=== PATIENT | female | born 1950 | race Caucasian/White ===

== ENCOUNTER → 2017-08-01 | Outpatient (CLI) | payer OTHER ==
[~2017-08-01] MED LIST: ASPI-232 PO; CHOL100010 PO; LISI-725 PO; OASIS OPB; POLY1DRO2 OPB; ZIOPTAN OPB
== END | disposition home or self-care (01) ==
LOC: C.PATHSPEC 10:47
PROVIDERS: ATTEND Plastic Surgery
DX: L72.11 Pilar cyst (principal)

== ENCOUNTER 2022-04-22 02:13 | Inpatient (IN) ==
[2022-04-22 03:07] LABS: Basophils # (auto) 0.04 K/uL (0-0.2); Basophils % (auto) 0.7 %; Hematocrit (blood only) 34.1 % (34.1-44.9); Hemoglobin 11.2 g/dl (12.0-16.0); Immature Granulocytes # (auto) 0.05 K/uL (0.00-0.02); Immature Granulocytes % (auto) 0.8 %; Lymphocytes # (auto) 1.51 K/uL (1.2-3.4); Lymphocytes % (auto) 25.3 %; Mean Corpuscular Hemoglobin 32.1 pg (25.0-34.0); Mean Corpuscular Hgb Conc 32.8 g/dL (32.0-36.0); Mean Corpuscular Volume 97.7 fL (80.0-100.0); Mean Platelet Volume 11.6 fL (9.4-12.3); Monocytes # (auto) 1.03 K/uL (0.24-0.82); Monocytes % (auto) 17.3 %; Neutrophils # (auto) 3.03 K/uL (1.4-6.5); Neutrophils % (auto) 50.9 %; Platelet Count 180 K/uL (130-400); RDW Coefficient of Variation 16.5 % (11.5-14.5); RDW Standard Deviation 59.3 fL (36.4-46.3); Red Blood Count 3.49 M/uL (3.93-5.22); White Blood Count 5.96 K/ul (4.8-10.8)
[2022-04-22 03:20] LABS: Albumin Level 3.9 gm/dl (3.4-5.0); BUN Creatinine Ratio 9.3 (10-20); Bilirubin Direct 0.1 mg/dl (0-0.2); Bilirubin,Total 0.6 mg/dl (0.2-1.0); Calcium 9.2 mg/dl (8.5-10.1); Creatinine Clr Calc Pharmacy 46.2 ml/min; Est GFR (African American) 59.8 ml/min; Est GFR (Non-African American) 51.6 ml/min; Magnesium 2.3 mg/dl (1.7-2.4); Potassium 3.4 mmol/L (3.5-5.1); Total Protein 6.4 gm/dl (6.0-8.3)
[2022-04-22 03:22] LABS: Troponin I High Sensitivity 4.4 pg/ml (0-14)
--- NOTE | 2022-04-22 03:28 | Emergency Department Note ---
Impression & Plan Syncope, Bradycardia Admit to the [facility] ED Provider Note NAME: MONO MENDEZ AGE: 72 SEX: F ARRIVES VIA: Ambulance INFORMANT: Patient ED PROVIDER(S): Olivia Graham DO CHIEF COMPLAINT: Syncope PLAN: Disposition: Admit to the [facility] Condition: Stable MEDICAL DECISION MAKING: This is a 72-year-old female patient presents to the emergency department after syncopal event. The patient was preparing for bed when she was sitting on a stool in her bathroom and had a syncopal event on the floor of the bathroom. She did not injure herself during this event. She has been having some diarrhea may be dehydrated. Laboratory studies reveal hemoglobin of 11.2 which is baseline for her. Electrolytes are normal, BUN/creatinine are normal. Patient was noted to be fairly bradycardic with heart rates as low as 40. The patient was evaluated just yesterday by [facility] cardiology and a Zio patch was placed. Patient was instructed to go to the emergency department or call 911 if she had any further episodes of near syncope or syncope. External recor ds from [facility] were reviewed. After review of the information above and other including data, I feel the patient will require inpatient care and evaluation by cardiology. I discussed the case with the [facility] and they will evaluate for inpatient care. Triage Nursing notes reviewed and agree with them. Vital Signs: reviewed and remarkable for bradycardia Differential diagnosis: Vasovagal syncope, cardiac dysrhythmia, bradycardia, dehydration ER treatment provided: IV normal saline hydration Twelve-lead EKG Cardiac monitoring Diagnostics interpreted by me: ECG: Sinus bradycardia at a rate of 47 with a first-degree AV block. There is no ectopy or signs of ischemia. Cardiac Monitoring: Sinus bradycardia at a rate of 47 Laboratory studies: See below HPI: 72/F arrives for evaluation of syncope. The patient was in her bathroom preparing to do her routine on her teeth and eyes when she was sitting on a stool and passed out onto the floor. She did not injure herself in any way during this episode. But she does not remember what happened. Patient does describe having some diarrhea. She has had significantly fatigued today and did sleep for a good part of the day. PAST MEDICAL HISTORY:Myeloma, Sjogren's syndrome, polymyalgia rheumatica PAST SURGICAL HISTORY:See Below FAMILY HISTORY:See Below SOCIAL HISTORY: Patient denies any alcohol or tobacco use HOME MEDICATIONS:See list ALLERGIES:See list VITALS:See Below PHYSICAL EXAMINATION: HEENT: Head - normocephalic and atraumatic. Pupils are equal, round, and react katina to light. Extraocular eye muscles are intact, and sclera are anicteric. Nose - moist nasal mucosa without discharge. Mouth - moist buccal mucosa. Oropharynx is nonerythematous and there is no tonsillar exudate or edema noted. Neck: Supple; no JVD, nuchal rigidity, cervical lymphadenopathy, or auscultated bruits. Heart: Bradycardic rate and regularRhythm. There is a normal S1 and S2 with no murmurs, clicks, or gallops appreciated. Lungs: Clear to auscultation bilaterally with no wheezes, rales, or rhonchi. Abdomen: Soft, completely nontender, nondistended, with good bowel sounds. Th ere are no palpable pulsatile masses or hepatosplenomegaly. There is no guarding, rigidity, or rebound noted. Extremities: No evidence of cyanosis, clubbing, or edema. There are easily palpable peripheral pulses. Skin: warm and dry with good turgor and no rashes. ED COURSE: Times/Reassessments: 250: The patient was evaluated in room B 10. A complete history and physical was performed. An order was placed for continuous cardiac monitoring. The patient was in a sinus bradycardia at a rate of 47. Laboratory studies drawn as above. Reviewed the results of the labs with the patient and her daughter. The patient remains significantly bradycardic at times with rates as low as 40. [facility]. Olivia Graham DO Past Med/Surg History Medical History Parathyroid adenoma Surgical History H/O colonoscopy "01/16- diverticulosis" History of bladder surgery History of bone marrow biopsy History of endoscopy History of knee surgery bilateral S/P appendectomy S/P cataract surgery S/P D&C (status post dilation and curettage) S/P KATIE-BSO S/P tonsillectomy and adenoidectomy Status post glaucoma surgery Family History Father Diabetes Hypertension Mother Diabetes Hypertension Stroke Environmental allergies Aunt Cancer Grandfather (Paternal) Cardiac disorder Stroke Brother Hypertension Prostate cancer Environmental allergies Asthma Sister Hypertension Environmental allergies Grandfather (Maternal) Stroke Daughter Environmental allergies Asthma Family/Other Environmental allergies nieces and nephews Other No family history of adverse response to anesthesia No family history of bleeding disorder Social History Smoking Status: Never smoker Hx Alcohol Use: No Hx Substance Use: No Preferred Language: Tajik Communication Ability: Effective [employer] Required: No Beliefs That Will Affect Care: None marital status: / Current Living Situation: Alone current occupational status: retired current occupation: Retired [employer] Other Information That Helps Us Care for You: No Feels Safe at Home: Yes Safety Concerns: Feels Safe At This Time Assistive Devices: Cane and Glasses Allergies Allergies Allergy/AdvReac Type Severity Reaction Status Date / Time clarithromycin Allergy Intermediate hives Verified 04/22/22 03:15 azithromycin Allergy Unknown swelling Verified 04/22/22 03:15 hydrocortisone Allergy Unknown rash Verified 04/22/22 03:15 meperidine Allergy Unknown rash Verified 04/22/22 03:15 neomycin Allergy Unknown rash Verified 04/22/22 03:15 polymyxin B Allergy Unknown rash Verified 04/22/22 03:15 propylene glycol Allergy Unknown rash Verified 04/22/22 03:15 lisinopril AdvReac Cough Unverified 04/22/22 03:15 Home Meds Home Medications Medication Instructions Recorded Confirmed acyclovir 400 mg tablet 400 mg PO AMHS 04/22/22 04/22/22 aspirin 81 mg tablet,delayed 81 mg PO DAILY 04/22/22 04/22/22 release cholecalciferol (vitamin D3) 50 50 mcg PO DAILY 04/22/22 04/22/22 mcg (2,000 unit) tablet dexamethasone 4 mg tablet 4 mg PO UD 04/22/22 04/22/22 dextran 70-hypromellose (PF) 0.1 1 drp OPB HS PRN Dry Eye(S) 04/22/22 04/22/22 %-0.3 % eye drops in a dropperette (Artificial Tears (PF)) fluconazole 150 mg tablet 150 mg PO WK 04/22/22 04/22/22 furosemide 40 mg tablet 40 mg PO QAM 04/22/22 04/22/22 gabapentin 300 mg capsule 300 mg PO UD 04/22/22 04/22/22 lenalidomide 25 mg capsule 25 mg PO UD 04/22/22 04/22/22 (Revlimid) losartan 50 mg tablet 50 mg PO QAM 04/22/22 04/22/22 magnesium oxide 400 mg PO DAILY 04/22/22 04/22/22 netarsudil 0.02 % eye drops 1 drp OPB HS 04/22/22 04/22/22 (Rhopressa) nystatin 100,000 unit/mL oral 10 ml buccal QID 04/22/22 04/22/22 suspension potassium chloride 10 mEq 20 meq PO AMPM 04/22/22 04/22/22 tablet,extended release(part/cryst) (Klor-Con M) tafluprost (PF) 0.0015 % eye drops 1 drp OPB HS 04/22/22 04/22/22 in a dropperette vitamin B complex 1 tab PO QAM 04/22/22 04/22/22 Results & Data (ED) Vital Signs Vital Signs - 24 hr 04/22/22 02:24 04/22/22 02:24 04/22/22 02:59 Temperature 36.8 C Temperature Source Oral Pulse Rate 47 L 47 L Pulse Rate from SpO2 Sensor 47 L Respiratory Rate 18 15 Respiratory Effort / Characteristics Non-Labored Respiratory Depth Normal Blood Pressure 121/100 152/63 H Blood Pressure Mean 107 92 Pulse Oximetry 98 96 Oxygen Delivery Method Room Air Room Air Sepsis Recent Fever Within 48 Hours No Sepsis New/Unexplained Change in Mental Status No Sepsis Action Taken by Nursing No Action Required 04/22/22 03:30 04/22/22 04:00 04/22/22 04:37 Temperature Temperature Source Pulse Rate 45 L 45 L 50 L Pulse Rate from SpO2 Sensor 45 L 45 L 54 L Respiratory Rate 19 18 21 Respiratory Effort / Characteristics Respiratory Depth Blood Pressure 158/90 H 150/79 H 161/77 H Blood Pressure Mean 112 102 105 Pulse Oximetry 97 100 92 Oxygen Delivery Method Sepsis Recent Fever Within 48 Hours Sepsis New/Unexplained Change in Mental Status Sepsis Action Taken by Nursing 04/22/22 05:00 04/22/22 05:30 Temperature Temperature Source Pulse Rate 46 L 49 L Pulse Rate from SpO2 Sensor 46 L 51 L Respiratory Rate 14 17 Respiratory Effort / Characteristics Respiratory Depth Blood Pressure 136/66 142/65 H Blood Pressure Mean 89 90 Pulse Oximetry 96 92 Oxygen Delivery Method Sepsis Recent Fever Within 48 Hours Sepsis New/Unexplained Change in Mental Status Sepsis Action Taken by Nursing Laboratory Data 04/22/22 02:30 04/22/22 02:30 Lab Results 04/22/22 04/22/22 04/22/22 Range/Units 02: 02:30 02:30 WBC 5.96 (4.8-10.8) K/ul RBC 3.49 L (3.93-5.22) M/uL Hgb 11.2 L (12.0-16.0) g/dl Hct 34.1 (34.1-44.9) % MCV 97.7 (80.0-100.0) fL MCH 32.1 (25.0-34.0) pg MCHC 32.8 (32.0-36.0) g/dL RDW Std Deviation 59.3 H (36.4-46.3) fL RDW Coeff of Esme 16.5 H (11.5-14.5) % Plt Count 180 (130-400) K/uL MPV 11.6 (9.4-12.3) fL Immature Gran % (Auto) 0.8 % Neut % (Auto) 50.9 % Lymph % (Auto) 25.3 % [place] % (Auto) 17.3 % Eos % (Auto) 5.0 % Baso % (Auto) 0.7 % Neut # (Auto) 3.03 (1.4-6.5) K/uL Lymph # (Auto) 1.51 (1.2-3.4) K/uL [place] # (Auto) 1.03 H (0.24-0.82) K/uL Eos # (Auto) 0.30 (0-0.50) K/uL Baso # (Auto) 0.04 (0-0.2) K/uL Immature Gran # (Auto) 0.05 H (0.00-0.02) K/uL Sodium 138 (136-145) mmol/L Potassium 3.4 L (3.5-5.1) mmol/L Chloride 103 (98-107) mmol/L Carbon Dioxide 25 (21-32) mmol/L Anion Gap 10 (3-11) BUN 10 (6-23) mg/dl Creatinine 1.08 (0.6-1.2) mg/dl Est Cr Clr Drug Dosing 46.2 ml/min Est GFR ( Amer) 59.8 ml/min Est GFR (Non-Af Amer) 51.6 ml/min BUN/Creatinine Ratio 9.3 L (10-20) Glucose 99 (70-99(Fasting)) mg/dl POC Glucose 89 (70-99) mg/dl Calcium 9.2 (8.5-10.1) mg/dl Magnesium 2.3 (1.7-2.4) mg/dl Total Bilirubin 0.6 (0.2-1.0) mg/dl Direct Bilirubin 0.1 (0-0.2) mg/dl AST 15 (13-39) U/L ALT 11 (7-52) U/L Alkaline Phosphatase 54 (34-104) U/L Troponin I High Sens 4.4 (0-14) pg/ml Total Protein 6.4 (6.0-8.3) gm/dl Albumin 3.9 (3.4-5.0) gm/dl TSH (0.300-4.500) uIu/ml SARS-CoV-2 (PCR) (Negative) Influenza Type A (PCR) (Neg) Influenza Type B (PCR) (Neg) RSV (RT-PCR) (Neg) 04/22/22 04/22/22 Range/Units 02:30 02:49 WBC (4.8-10.8) K/ul RBC (3.93-5.22) M/uL Hgb (12.0-16.0) g/dl Hct (34.1-44.9) % MCV (80.0-100.0) fL MCH (25.0-34.0) pg MCHC (32.0-36.0) g/dL RDW Std Deviation (36.4-46.3) fL RDW Coeff of Esme (11.5-14.5) % Plt Count (130-400) K/uL MPV (9.4-12.3) fL Immature Gran % (Auto) % Neut % (Auto) % Lymph % (Auto) % [place] % (Auto) % Eos % (Auto) % Baso % (Auto) % Neut # (Auto) (1.4-6.5) K/uL Lymph # (Auto) (1.2-3.4) K/uL [place] # (Auto) (0.24-0.82) K/uL Eos # (Auto) (0-0.50) K/uL Baso # (Auto) (0-0.2) K/uL Immature Gran # (Auto) (0.00-0.02) K/uL Sodium (136-145) mmol/L Potassium (3.5-5.1) mmol/L Chloride (98-107) mmol/L Carbon Dioxide (21-32) mmol/L Anion Gap (3-11) BUN (6-23) mg/dl Creatinine (0.6-1.2) mg/dl Est Cr Clr Drug Dosing ml/min Est GFR ( Amer) ml/min Est GFR (Non-Af Amer) ml/min BUN/Creatinine Ratio (10-20) Glucose (70-99(Fasting)) mg/dl POC Glucose (70-99) mg/dl Calcium (8.5-10.1) mg/dl Magnesium (1.7-2.4) mg/dl Total Bilirubin (0.2-1.0) mg/dl Direct Bilirubin (0-0.2) mg/dl AST (13-39) U/L ALT (7-52) U/L Alkaline Phosphatase (34-104) U/L Troponin I High Sens (0-14) pg/ml Total Protein (6.0-8.3) gm/dl Albumin (3.4-5.0) gm/dl TSH 0.510 (0.300-4.500) uIu/ml SARS-CoV-2 (PCR) NEGATIVE (Negative) Influenza Type A (PCR) Negative (Neg) Influenza Type B (PCR) Negative (Neg) RSV (RT-PCR) Negative (Neg) Administered Medications Acyclovir (Acyclovir 400 Mg Tab) 400 mg PO AMHS [facility] Stop: 05/22/22 08:59 Last Admin: 04/22/22 20:20 Dose: 400 mg Documented By: Admin: 04/22/22 10:16 Dose: 400 mg Documented By: RONALDW Aspirin (Aspirin 81 Mg Ectab) 81 mg PO DAILY [facility] Stop: 05/22/22 08:59 Last Admin: 04/22/22 10:16 Dose: 81 mg Documented By: JAIME Furosemide (Furosemide 40 Mg Tab) 40 mg PO QAM SARATH Stop: 05/22/22 08:59 Last Admin: 04/22/22 10:15 Dose: 40 mg Documented By: JAIME Losartan Potassium (Losartan Potassium 50 Mg Tab) 50 mg PO QAM [facility]ATH Stop: 05/22/22 08:59 Last Admin: 04/22/22 10:16 Dose: 50 mg Documented By: JAIME Magnesium Oxide (Magnesium Oxide 400 Mg Tab) 400 mg PO QDD SARATH Stop: 05/22/22 16:29 Last Admin: 04/22/22 16:56 Dose: 400 mg Documented By: NATALI Nystatin (Nystatin Susp 500,000 U/5 Ml Udc) 10 ml BUCCAL QID SARATH Stop: 05/02/22 08:59 Last Admin: 04/22/22 20:09 Dose: Not Given Documented By: Admin: 04/22/22 16:43 Dose: Not Given Documented By: Admin: 04/22/22 13:18 Dose: Not Given Documented By: Admin: 04/22/22 10:14 Dose: 10 ml Documented By: JAIME Potassium Chloride (Potassium Chloride Crtab 20 Meq Tabcr) 20 meq PO BID SARATH Stop: 05/22/22 08:59 Last Admin: 04/22/22 20:20 Dose: 20 meq Documented By: Admin: 04/22/22 10:15 Dose: 20 meq Documented By: JAIME Vitamin B Complex (Vitamin B Complex Tab) 1 tab PO QAM SARATH Stop: 05/22/22 08:59 Last Admin: 04/22/22 10:15 Dose: 1 tab Documented By: JAIME Vitamin D (Cholecalciferol 1,000 Units 25 Mcg Tab) 2,000 units PO DAILY [facility]ATH Stop: 05/22/22 08:59 Last Admin: 04/22/22 10:16 Dose: 2,000 units Documented By: JAIME Discontinued Medications Sodium Chloride (Nss 1000ml) 1,000 mls @ 75 mls/hr IV .[id number] SARATH Stop: 05/22/22 07:45 Last Infusion: 04/22/22 15:55 Dose: 0 mls/hr Documented By: Admin: 04/22/22 08:47 Dose: 75 mls/hr Documented By: STEPHANIE Loperamide HCl (Loperamide Hcl 2 Mg Cap) 2 mg PO NOW STA Stop: 04/22/22 10:25 Last Admin: 04/22/22 15:50 Dose: Not Given Documented By: NATALI Miscellaneous (Rhopressa-Order Awaiting Action) 1 each N/A QS SARATH Stop: 05/22/22 15:59 Last Admin: 04/22/22 16:12 Dose: Not Given Documented By: NATALI Hebertcellaneous (Tafluprost- Order Awaiting Action) 1 each N/A QS SARATH Stop: 05/22/22 15:59 Last Admin: 04/22/22 16:12 Dose: Not Given Documented By: NATALI Potassium Chloride (Potassium Chloride 20 Meq/15 Ml Udc) 40 meq PO NOW STA Stop: 04/22/22 06:28 Last Admin: 04/22/22 06:42 Dose: 40 meq Documented By: EVAN Discharge Plan Visit Data Chief Complaint: Syncope Stated Complaint: SYNCOPE ED Provider: Olivia Graham Discharge Problem: Syncope, Bradycardia Patient Disposition: Admitted As Inpatient Discharge Instructions Interventions: ED Discharge Assessment Last Done: 04/22/22 07:47 : Syncope Qualifiers: Syncope type: unspecified Qualified Code(s): R55 - Syncope and collapse
[2022-04-22 04:16] LABS: Influenza A virus by PCR Negative (Neg); Influenza B virus by PCR Negative (Neg); RSV by PCR Negative (Neg); SARS CoV2 RNA(COVID-19) Ceph NEGATIVE (Negative)
[2022-04-22 04:59] LABS: Appearance Urine Clear (Clear); Bacteria Urine Automated Negative (Negative); Bilirubin Urine Negative (Negative); Blood Urine 3+ (Negative); Color Urine Yellow; Epithelial Cell Urine Auto 20-30 /lpf (0-5); Glucose Urine UA Negative (Negative); Ketones Urine Trace (Negative); Leukocyte Esterase Urine Negative (Negative); Nitrite Urine Negative (Negative); Protein Urine Trace (Negative); Specific Gravity Urine 1.017 (1.000-1.030); Urobilinogen Urine Negative (Negative)
[2022-04-22] MEDS ORDERED: POTASSIUM CHLORIDE 20 MEQ/15 ML UDC PO STA (06:27)
[2022-04-22] MEDS ORDERED: SODIUM CHLORIDE 0.9% 1000ML 1,000 ML IV SCH (07:46)
[2022-04-22] MEDS ORDERED: ACETAMINOPHEN 325 MG TAB PO PRN (07:46)
[2022-04-22] MEDS ORDERED: NITROGLYCERIN SL 0.4 MG/TAB TAB SL PRN (07:46)
[2022-04-22] MEDS ORDERED: ARTIFICIAL TEARS OP PRN (08:08)
--- NOTE | 2022-04-22 08:17 | XRay Report ---
RIGHT WRIST 5 VIEWS HISTORY: fall and pain COMPARISON: None. FINDINGS: There is no fracture or dislocation. Mild soft tissue swelling. No radiopaque foreign adal s. IMPRESSION: No fractures. ACT 112: Negative or not required by law. Electronically signed by: Abbe Rodarte M.D. 04/22/2022 8:16 AM
--- NOTE | 2022-04-22 09:01 | History and Physical Report ---
DATE OF ADMISSION: 04/22/2022. CHIEF COMPLAINT: Syncope. HISTORY OF PRESENT ILLNESS: History of paroxysmal atrial fibrillation in setting of electrolyte disturbance, and a CHADS2-VASc score of 2 at the time and not on anticoagulation. No recurrence. As per the Cardiology notes there is history of atrial and ventricular ectopy, resting sinus bradycardia, hypertension, aortic calcification, light chain myeloma currently under chemo, history of Sjogren's disease, history of parathyroid adenoma, presents with syncope. Patient is having this dizziness, lightheadedness going on for some time and resting bradycardia, evaluated by Cardiology last Saturday and placed on Zio patch. Last night around 11:30 p.m., she was sitting on the stool in the bathroom and cleaning up herself, she was feeling lightheaded, but the next thing she noticed she was sitting on the floor. She does not remember how it happened. She is also having diarrhea like 4-5 times recently attributing to chemo and she could not get up to go to bathroom and she soiled herself and she is cleaning and was feeling lightheaded and that is the reason she came to the ER. In the ER she was bradycardic with heart rate in the 40s. Currently, resting comfortably, hemodynamically stable. Denies any headache. No blurred visions. She has no earache, no runny nose, no sore throat, no cough, no difficulty swallowing. No chest pain, no shortness of breath, no abdominal pain. Normal bowel and bladder movements.On Acyclovir for chronic suppressive therapy. ON Diflucan for fungal infection under breast and nystatin swish and swallow for thrush. ALLERGIES: CLARITHROMYCIN, ERYTHROMYCIN, HYDROCORTISONE, MEPERIDINE, NEOMYCIN, POLYMYXIN B., PROPYLENE GLYCOL, LISINOPRIL. PAST MEDICAL HISTORY: As mentioned above. PAST SURGICAL HISTORY: Bone marrow biopsy, chemotherapy, colonoscopy, dental surgery, dilatation and curettage, EGD, incision of eye for glaucoma, laparoscopic total abdominal hysterectomy with bilateral salpingo-oophorectomy fibroids with anterior repair, laser trabeculoplasty, punch biopsy of skin, appendectomy, tonsillectomy, adenoidectomy, left knee meniscus repair. MEDICATIONS: The patient is on acyclovir 400 mg p.o. b.i.d., aspirin 81 mg p.o. daily, vitamin D 50 mcg p.o. daily, dexamethasone as directed, Artificial Tears 1 drop ophthalmic at bedtime p.r.n., fluconazole 150 mg p.o. b.i.d. for up to four weeks, Lasix 40 mg p.o. daily, Revlimid 25 mg for 14 days and one week off, losartan 50 mg p.o. daily, magnesium oxide 400 mg p.o. daily, Rhopressa one drop ophthalmic at bedtime,nystatin 10 ml q.i.d., potassium chloride 20 mEq p.o. b.i.d., tafluprost 1 drop at bedtime, vitamin B complex 1 tablet p.o. a.m. FAMILY HISTORY: Significant for brother has allergies; mother has allergies, arthritis, diabetes, hypertension, obesity; father has diabetes, eye problems, hypertension. Sister has hypertension. SOCIAL HISTORY: . No smoking, no alcohol, no drug use. REVIEW OF SYSTEMS: As per HPI. Rest of the review of systems is negative. PHYSICAL EXAMINATION: GENERAL: The patient is moderately built, not in acute distress. VITAL SIGNS: Temperature 36.8, pulse 49, respiratory rate 17, blood pressure 142/65, oxygen 92% on room air. HEENT: Pupils equal, round and reactive to light. Oral mucosa moist. NECK: No JVD. No neck masses. CARDIOVASCULAR: S1 and S2 heard. Regular rate and rhythm. No murmur, no gallop. RESPIRATORY SYSTEM: Normal AP diameter. No accessory muscle use. No wheezing, no crackles. ABDOMEN: Soft, bowel sounds present, nontender, no distention. CENTRAL NERVOUS SYSTEM: Cranial nerves II-XII grossly intact, nonfocal. EXTREMITIES: No edema, no erythema. LABORATORY DATA: WBC 5.6, hemoglobin 11.2, hematocrit 34.1, platelets 180. Sodium 138, potassium 3.4, chloride 103, bicarbonate 25, BUN 10, creatinine 1.08, serum glucose 99, calcium 9.2, magnesium 2.8, total bilirubin 0.1, direct bilirubin 0.1, AST 15, ALT 11, alkaline phosphatase 54. Troponin I high sensitivity 4.4. TSH 0.5. Urinalysis negative. SARS-CoV-2 PCR negative. Influenza A and B PCR negative. RSV PCR negative. EKG: Shows sinus bradycardia with first-degree AV block at a rate of 47, left axis deviation, incomplete right bundle-branch block. ASSESSMENT AND PLAN: This 72-year-old female presents with syncope. 1. Syncope, possible symptomatic bradycardia. The patient seems has longstanding sinus bradycardia. Last Ihsan she saw Cardiology and placed on Zio patch. We will monitor in tele floor. Serial cardiac enzymes, echocardiogram. Check Orthostatics.Gentle fluids. We will keep her n.p.o. and consult Cardiology in the a.m. for further recommendations. 2. Light chain multiple myeloma, on chemo. Follow up with hematology/oncology. Further plan as per hematology/oncology. 3. Hypokalemia, potassium is 3.4, we will replace. 4. Hypertension, on losartan and Lasix. We will monitor the blood pressure. 5. History of parathyroid adenoma. Follow with hematology/oncology. 6. Deep venous thrombosis prophylaxis: Sequential compression devices for now. DISPOSITION: Admit to tele floor. Level 1 full code. Expect to discharge home and follow with family doctor. Job ID: [id number] [facility]
[2022-04-22] MEDS: NYSTATIN SUSP 500,000 U/5 ML UDC BUCCAL SCH ×4 (10:14→20:09)
[2022-04-22] MEDS: VITAMIN B COMPLEX TAB PO SCH (10:15)
[2022-04-22] MEDS: POTASSIUM CHLORIDE CRTAB 20 MEQ TABCR PO SCH ×2 (10:15→20:20)
[2022-04-22] MEDS: FUROSEMIDE 40 MG TAB PO SCH (10:15)
[2022-04-22] MEDS: ASPIRIN 81 MG ECTAB PO SCH (10:16)
[2022-04-22] MEDS: CHOLECALCIFEROL 1,000 UNITS 25 MCG TAB PO SCH (10:16)
[2022-04-22] MEDS: ACYCLOVIR 400 MG TAB PO SCH ×2 (10:16→20:20)
[2022-04-22] MEDS: LOSARTAN POTASSIUM 50 MG TAB PO SCH (10:16)
--- NOTE | 2022-04-22 10:22 | Cardiology Consultation ---
Date of Consultation April 22, 2022 Assessment & Plan (1) Syncope: (2) SSS (sick sinus syndrome): (3) Fibromyalgia: (4) Hypertension: (5) PAF (paroxysmal atrial fibrillation): (6) Sjogrens syndrome: (7) GERD (gastroesophageal reflux disease): (8) MGUS (monoclonal gammopathy of unknown significance): Plan Given the patient's recurrent syncope and resting bradycardia while not on any rate controlling agents I do believe she is suffering from symptomatic bradycardia She does carry history of paroxysmal atrial fibrillation as well and is also at significant risk of developing tachybradycardia syndrome. A Lyme titer will be checked and should it come back negative we will likely proceed with dual-chamber permanent pacemaker placement in the near future. Continue to monitor on telemetry overnight History of Present Illness Reason for Consultation: syncope Requesting Physician: ANNABEL Attending Physician: Danis Olsen MD History of Present Illness Mrs. Lozada is a 72-year-old woman who routinely follows with La[facility] of our cardiology practice for history of paroxysmal atrial fibrillation. She presented to [facility] on 04/22/2022 with reports of a syncopal spell. She states that she was feeling well and seated on a stool getting ready for bed. She states the next thing she realized she was sitting on the floor. When she awoke her right hand was in pain and she was a little lightheaded. Upon arrival to the emergency department she was found to be in sinus bradycardia and cardiology was consulted. She was seen in our office in the last few days for her dizziness and bradycardia and she is currently wearing a Zio patch monitor. She is not on any rate controlling agents or anticoagulation for her history of A. fib History includes: 1. Paroxysmal atrial fibrillation in the setting of electrolyte disturbance, [id number] score of 2 (female, hypertension) at the time and not on chronic anticoagulation. No recurrence. 2. Atrial and ventricular ectopy 3. Resting sinus bradycardia 4. Hypertension 5. Aortic calcification/atherosclerosis 6. Light chain myeloma/multiple myeloma Allergies Allergy/AdvReac Type Severity Reaction Status Date / Time clarithromycin Allergy Intermediate hives Verified 04/22/22 03:15 azithromycin Allergy Unknown swelling Verified 04/22/22 03:15 hydrocortisone Allergy Unknown rash Verified 04/22/22 03:15 meperidine Allergy Unknown rash Verified 04/22/22 03:15 neomycin Allergy Unknown rash Verified 04/22/22 03:15 polymyxin B Allergy Unknown rash Verified 04/22/22 03:15 propylene glycol Allergy Unknown rash Verified 04/22/22 03:15 lisinopril AdvReac Cough Unverified 04/22/22 03:15 Home Medications Medication Instructions Recorded Confirmed Type acyclovir 400 mg tablet 400 mg PO AMHS 04/22/22 04/22/22 History aspirin 81 mg tablet,delayed 81 mg PO DAILY 04/22/22 04/22/22 History release cholecalciferol (vitamin D3) 50 50 mcg PO DAILY 04/22/22 04/22/22 History mcg (2,000 unit) tablet dexamethasone 4 mg tablet 4 mg PO UD 04/22/22 04/22/22 History dextran 70-hypromellose (PF) 0.1 1 drp OPB PRN Dry Eye(S) 04/22/22 04/22/22 History %-0.3 % eye drops in a dropperette (Artificial Tears (PF)) fluconazole 150 mg tablet 150 mg PO WK 04/22/22 04/22/22 History furosemide 40 mg tablet 40 mg PO QAM 04/22/22 04/22/22 History gabapentin 300 mg capsule 300 mg PO UD 04/22/22 04/22/22 History lenalidomide 25 mg capsule 25 mg PO UD 04/22/22 04/22/22 History (Revlimid) losartan 50 mg tablet 50 mg PO QAM 04/22/22 04/22/22 History magnesium oxide 400 mg PO DAILY 04/22/22 04/22/22 History netarsudil 0.02 % eye drops 1 drp OPB 04/22/22 04/22/22 History (Rhopressa) nystatin 100,000 unit/mL oral 10 ml buccal QID 04/22/22 04/22/22 History suspension potassium chloride 10 mEq 20 meq PO AMPM 04/22/22 04/22/22 History tablet,extended release(part/cryst) (Klor-Con M) tafluprost (PF) 0.0015 % eye drops 1 drp OPB 04/22/22 04/22/22 History in a dropperette vitamin B complex 1 tab PO QAM 04/22/22 04/22/22 History Patient History Medical History Parathyroid adenoma Surgical History H/O colonoscopy "01/16- diverticulosis" History of bladder surgery History of bone marrow biopsy History of endoscopy History of knee surgery bilateral S/P appendectomy S/P cataract surgery S/P D&C (status post dilation and curettage) S/P KATIE-BSO S/P tonsillectomy and adenoidectomy Status post glaucoma surgery Family History Father Diabetes Hypertension Mother Diabetes Hypertension Stroke Environmental allergies Aunt Cancer Grandfather (Paternal) Cardiac disorder Stroke Brother Hypertension Prostate cancer Environmental allergies Asthma Sister Hypertension Environmental allergies Grandfather (Maternal) Stroke Daughter Environmental allergies Asthma Family/Other Environmental allergies nieces and nephews Other No family history of adverse response to anesthesia No family history of bleeding disorder Social History Smoking Status: Never smoker Hx Alcohol Use: No Hx Substance Use: No Preferred Language: Cymraes Communication Ability: Effective Slide Maker Required: No Beliefs That Will Affect Care: None marital status: / Current Living Situation: Alone current occupational status: retired current occupation: Retired Hotel Breakfast Attendant Other Information That Helps Us Care for You: No Feels Safe at Home: Yes Safety Concerns: Feels Safe At This Time Assistive Devices: Cane and Glasses Review of Systems Review of Systems: All systems reviewed & are unremarkable except as noted in HPI & below Physical Exam Physical Exam: General: Awake, alert and oriented x 3. No acute distress. HEENT: Normocephalic, atraumatic. Pupils equal, round and reactive to light and accommodation. Extraocular muscles are intact. Anicteric sclera. Moist mucous membranes. Neck: No JVD. No bruit. Cardiovascular: Regular. Positive S-4. Normal S-1 and S-2. No S-3. No murmurs or rubs. Pulmonary: Clear to auscultation B/L. No rales, rhonchi or wheezing Abdomen: Bowel sounds x 4, soft. No rebound, guarding or tenderness. No organomegaly. Extremities: No clubbing, cyanosis or edema. +2 pedal pulses bilaterally. Skin: Warm and dry. Results & Data ([facility]) Vital Signs (Past 12 Hours) Vital Signs Temp Pulse Pulse Resp BP BP Pulse Ox 04/22/22 07:46 04/22/22 07:46 46 L 20 141/65 H 97 04/22/22 06:37 47 L 20 119/66 89 L 04/22/22 05:30 49 L 17 142/65 H 92 04/22/22 05:00 46 L 14 136/66 96 04/22/22 04:37 50 L 21 161/77 H 92 04/22/22 04:00 45 L 18 150/79 H 100 04/22/22 03:30 45 L 19 158/90 H 97 04/22/22 02:59 47 L 15 152/63 H 96 04/22/22 02:24 04/22/22 02:24 36.8 C 47 L 18 121/100 98 Pulse Ox O2 Del Method O2 Del Method O2 Flow Rate 04/22/22 07:46 96 Room Air 0 04/22/22 07:46 Room Air 04/22/22 06:37 04/22/22 05:30 04/22/22 05:00 04/22/22 04:37 04/22/22 04:00 04/22/22 03:30 04/22/22 02:59 04/22/22 02:24 Room Air 04/22/22 02:24 Room Air
[2022-04-22] MEDS ORDERED: LOPERAMIDE HCL 2 MG CAP PO STA (10:24)
[2022-04-22 15:57] LABS: Adenovirus F 40/41 PCR Not Detected (NotDetected); Astrovirus PCR Not Detected (NotDetected); Campylobacter PCR Not Detected (NotDetected); Cryptosporidium PCR Not Detected (NotDetected); Cyclospora cayetanensis PCR Not Detected (NotDetected); Entamoeba histolytica PCR Not Detected (NotDetected); Enteroaggregative E.coli(EAEC) Not Detected (NotDetected); Enteropathogenic E.coli (EPEC) Not Detected (NotDetected); Enterotoxigenic E.coli (ETEC) Not Detected (NotDetected); Giardia lamblia PCR Not Detected (NotDetected); Norovirus GI/GII PCR Not Detected (NotDetected); Plesiomonas shigelloides PCR Not Detected (NotDetected); Rotavirus A PCR Not Detected (NotDetected); Salmonella PCR Not Detected (NotDetected); Sapovirus PCR Not Detected (NotDetected); Shiga-like Toxin E.coli (STEC) Not Detected (NotDetected); Shigella/Enteroinvasive E.coli Not Detected (NotDetected); Vibrio cholerae PCR Not Detected (NotDetected); Vibrio species PCR Not Detected (NotDetected); Yersinia enterocolitica PCR Not Detected (NotDetected)
[2022-04-22] MEDS: MAGNESIUM OXIDE 400 MG TAB PO SCH (16:56)
--- NOTE | 2022-04-23 06:22 | Electrocardiogram Report ---
Test Reason : Blood Pressure : / mmHG Vent. Rate : 047 BPM Atrial Rate : 047 BPM P-R Int : 216 ms QRS Dur : 118 ms QT Int : 524 ms P-R-T Axes : 014 -35 029 degrees QTc Int : 463 ms Sinus bradycardia with 1st degree A-V block Left axis deviation Incomplete right bundle branch block Cannot rule out Anterior infarct , age undetermined Abnormal ECG When compared with ECG of 03-AUG-2015 23:29, No significant change Confirmed by Armond Galarza ([id number]) on 04/23/2022 6:22:26 AM Referred By: REFERRED SELF Confirmed By:Armond Galarza
[2022-04-23 07:12] LABS: Hematocrit (blood only) 33.5 % (34.1-44.9); Hemoglobin 11.2 g/dl (12.0-16.0); Mean Corpuscular Hemoglobin 32.7 pg (25.0-34.0); Mean Corpuscular Hgb Conc 33.4 g/dL (32.0-36.0); Mean Corpuscular Volume 97.7 fL (80.0-100.0); Mean Platelet Volume 11.6 fL (9.4-12.3); Platelet Count 104 K/uL (130-400); RDW Coefficient of Variation 16.3 % (11.5-14.5); RDW Standard Deviation 59.6 fL (36.4-46.3); Red Blood Count 3.43 M/uL (3.93-5.22); White Blood Count 4.31 K/ul (4.8-10.8)
--- NOTE | 2022-04-23 08:01 | Hospitalist Progress Note ---
Date of Service April 23, 2022 Assessment & Plan (1) Syncope: (2) Bradycardia: Plan: This 72-year-old female presents with syncope. 1. Syncope, possible symptomatic bradycardia. The patient seems has longstanding sinus bradycardia. Last Saturday she saw Cardiology and placed on Zio patch. Monitor in tele floor. Mobitz type II this AM, reviewed by cardiology Troponin negative Echocardiogram obtained Normal LV chamber size and wall thickness. Normal LV systolic function, EF 60 to 65%. No segmental LV wall motion abnormalities are noted. Grade 1 diastolic dysfunction. No significant valvular pathology. Cardiology consultedplan for pacer placement, likely tomorrow 2. Light chain multiple myeloma, on chemotherapy. Follow up with hematology/oncology. 3. Hypokalemia replace and monitor 4. Hypertension, on losartan and Lasix. We will monitor the blood pressure. 5. History of parathyroid adenoma. Follow with hematology/oncology. DVT prophylaxis: SCDs DISPOSITION: tele floor. Code: Full code. Admission and Anticipated Discharge Date Admission Date: April 22, 2022 Subjective Patient seen in follow-up of bradycardia, syncopal episode, has history of MM (on chemo) Currently laying in bed, in no acute distress, patient's daughter present at bedside Patient denies any chest pain, palpitations, shortness of breath, headache dizziness lightheadedness Denies abdominal pain nausea vomiting Says she has been walking to the bathroom but otherwise not ambulating much Plan for pacer placement, likely tomorrow Review of Systems Review of Systems: All systems reviewed & are unremarkable except as noted in Subjective Physical Exam Physical Exam: GENERAL: The patient is moderately built, not in acute distress. HEENT: Pupils equal, round and reactive to light. EOMI, Oral mucosa moist. NECK: No JVD. No neck masses. CARDIOVASCULAR: S1 and S2 heard. Regular rate and rhythm HR 40-50s, No murmur, no gallop. RESPIRATORY: Normal AP diameter. No accessory muscle use. No wheezing, no crackles. ABDOMEN: Soft, bowel sounds present, nontender, no distention. NEURO:Awake alert oriented, answers appropriately, no facial symmetry, speech fluent, moves extremities EXTREMITIES: No edema, no erythema. Results & Data Results & Data ([facility]) Vital Signs (Past 12 Hours) Vital Signs Temp Pulse Resp BP Pulse Ox O2 Del Method 04/23/22 02:57 36.8 C 47 L 18 129/78 93 Room Air 04/22/22 22:32 36.7 C 49 L 17 160/80 H 90 Room Air Laboratory Results 04/23/22 04/23/22 04/23/22 Range/Units 09:35 06:45 06:45 WBC 4.31 L (4.8-10.8) K/ul RBC 3.43 L (3.93-5.22) M/uL Hgb 11.2 L (12.0-16.0) g/dl Hct 33.5 L (34.1-44.9) % MCV 97.7 (80.0-100.0) fL MCH 32.7 (25.0-34.0) pg MCHC 33.4 (32.0-36.0) g/dL RDW Std Deviation 59.6 H (36.4-46.3) fL RDW Coeff of Esme 16.3 H (11.5-14.5) % Plt Count 104 L (130-400) K/uL MPV 11.6 (9.4-12.3) fL Sodium Pending Potassium Pending Chloride Pending Carbon Dioxide Pending Anion Gap Pending BUN Pending Creatinine Pending Est Cr Clr Drug Dosing Pending Est GFR ( Amer) Pending Est GFR (Non-Af Amer) Pending BUN/Creatinine Ratio Pending Glucose Pending Calcium Pending Phosphorus Pending Magnesium Pending Troponin I High Sens (0-14) pg/ml Stl C. cayetanensis PCR (NotDetected) Stool Rotavirus A PCR (NotDetected) Stl Adenov F 40/41 PCR (NotDetected) Stool Astrovirus (PCR) (NotDetected) Stool Campylobacter PCR (NotDetected) Stool Cryptosporidium PCR (NotDetected) Stl E.coli Shiga Tox PCR (NotDetected) Stl Enterotoxigenic E PCR (NotDetected) Stool EPEC (PCR) (NotDetected) Stool EAEC (PCR) (NotDetected) Stl E. histolytica PCR (NotDetected) Stool Giardia Lamblia PCR (NotDetected) Stool Salmonella PCR (NotDetected) Stool Sapovirus (PCR) (NotDetected) Stl P. shigelloides PCR (NotDetected) Stl Shigella/EIEC PCR (NotDetected) St Y.enterocolitica PCR (NotDetected) Stool Vibrio (PCR) (NotDetected) Stl Vibrio cholerae PCR (NotDetected) Stl Norovirus GI/GII PCR (NotDetected) Lyme Disease IgG Ab Negative (Negative) Lyme Disease IgM Ab Negative (Negative) 04/22/22 04/22/22 04/22/22 Range/Units 20:24 14:27 14:16 WBC (4.8-10.8) K/ul RBC (3.93-5.22) M/uL Hgb (12.0-16.0) g/dl Hct (34.1-44.9) % MCV (80.0-100.0) fL MCH (25.0-34.0) pg MCHC (32.0-36.0) g/dL RDW Std Deviation (36.4-46.3) fL RDW Coeff of Esme (11.5-14.5) % Plt Count (130-400) K/uL MPV (9.4-12.3) fL Sodium Potassium Chloride Carbon Dioxide Anion Gap BUN Creatinine Est Cr Clr Drug Dosing Est GFR ( Amer) Est GFR (Non-Af Amer) BUN/Creatinine Ratio Glucose Calcium Phosphorus Magnesium Troponin I High Sens 5.2 6.0 (0-14) pg/ml Stl C. cayetanensis PCR Not Detected (NotDetected) Stool Rotavirus A PCR Not Detected (NotDetected) Stl Adenov F 40/41 PCR Not Detected (NotDetected) Stool Astrovirus (PCR) Not Detected (NotDetected) Stool Campylobacter PCR Not Detected (NotDetected) Stool Cryptosporidium PCR Not Detected (NotDetected) Stl E.coli Shiga Tox PCR Not Detected (NotDetected) Stl Enterotoxigenic E PCR Not Detected (NotDetected) Stool EPEC (PCR) Not Detected (NotDetected) Stool EAEC (PCR) Not Detected (NotDetected) Stl E. histolytica PCR Not Detected (NotDetected) Stool Giardia Lamblia PCR Not Detected (NotDetected) Stool Salmonella PCR Not Detected (NotDetected) Stool Sapovirus (PCR) Not Detected (NotDetected) Stl P. shigelloides PCR Not Detected (NotDetected) Stl Shigella/EIEC PCR Not Detected (NotDetected) St Y.enterocolitica PCR Not Detected (NotDetected) Stool Vibrio (PCR) Not Detected (NotDetected) Stl Vibrio cholerae PCR Not Detected (NotDetected) Stl Norovirus GI/GII PCR Not Detected (NotDetected) Lyme Disease IgG Ab (Negative) Lyme Disease IgM Ab (Negative) Medications Administered Current Inpatient Medications Acetaminophen (Acetaminophen 325 Mg Tab) 650 mg PO Q4H PRN PRN Reason: Pain or Fever Stop: 05/22/22 07:45 Acyclovir (Acyclovir 400 Mg Tab) 400 mg PO AMHS [facility] Stop: 05/22/22 08:59 Last Admin: 04/22/22 20:20 Dose: 400 mg Artificial Tears (Artificial Tears) 1 drops OP HS PRN PRN Reason: Dry Eye(S) Stop: 05/22/22 08:07 Aspirin (Aspirin 81 Mg Ectab) 81 mg PO DAILY [facility] Stop: 05/22/22 08:59 Last Admin: 04/22/22 10:16 Dose: 81 mg Fluconazole (Fluconazole 50 Mg Tab) 150 mg PO Sa@0700 [facility] Stop: 05/12/22 07:01 Furosemide (Furosemide 40 Mg Tab) 40 mg PO QAM [facility] Stop: 05/22/22 08:59 Last Admin: 04/22/22 10:15 Dose: 40 mg Losartan Potassium (Losartan Potassium 50 Mg Tab) 50 mg PO QAM [facility] Stop: 05/22/22 08:59 Last Admin: 04/22/22 10:16 Dose: 50 mg Magnesium Oxide (Magnesium Oxide 400 Mg Tab) 400 mg PO QDD [facility] Stop: 05/22/22 16:29 Last Admin: 04/22/22 16:56 Dose: 400 mg Nitroglycerin (Nitroglycerin Sl 0.4 Mg/Tab Tab) 0.4 mg SL UD PRN PRN Reason: Chest Pain Stop: 05/22/22 07:45 Nystatin (Nystatin Susp 500,000 U/5 Ml Udc) 10 ml BUCCAL QID [facility] Stop: 05/02/22 08:59 Last Admin: 04/22/22 20:09 Dose: Not Given Potassium Chloride (Potassium Chloride Crtab 20 Meq Tabcr) 20 meq PO BID [facility] Stop: 05/22/22 08:59 Last Admin: 04/22/22 20:20 Dose: 20 meq Vitamin B Complex (Vitamin B Complex Tab) 1 tab PO QAM [facility] Stop: 05/22/22 08:59 Last Admin: 04/22/22 10:15 Dose: 1 tab Vitamin D (Cholecalciferol 1,000 Units 25 Mcg Tab) 2,000 units PO DAILY [facility] Stop: 05/22/22 08:59 Last Admin: 04/22/22 10:16 Dose: 2,000 units (1) Syncope Syncope type: unspecified Qualified Code(s): R55 - Syncope and collapse
--- NOTE | 2022-04-23 08:45 | Cardiology Progress Note ---
Date of Service April 23, 2022 Assessment & Plan (1) Syncope: (2) SSS (sick sinus syndrome): (3) Fibromyalgia: (4) Hypertension: (5) PAF (paroxysmal atrial fibrillation): (6) Sjogrens syndrome: (7) GERD (gastroesophageal reflux disease): (8) MGUS (monoclonal gammopathy of unknown significance): Plan EKG this AM demonstrates Mobitz II AV block will need ppm placement lyme titer not ordered plan for pacer placement in the am of 04/24/22 diet resumed npo after midnight Admission and Anticipated Discharge Date Admission Date: April 22, 2022 Subjective Patient seen and examined. Chart reviewed. Telemetry reviewed. States that she feels well at rest but has not been ambulating. Review of Systems Review of Systems: All systems reviewed & are unremarkable except as noted in HPI & below Physical Exam Physical Exam: General: Awake, alert and oriented x 3. No acute distress. HEENT: Normocephalic, atraumatic. Pupils equal, round and reactive to light and accommodation. Extraocular muscles are intact. Anicteric sclera. Moist mucous membranes. Neck: No JVD. No bruit. Cardiovascular: Regular. Positive S-4. Normal S-1 and S-2. No S-3. No murmurs or rubs. Pulmonary: Clear to auscultation B/L. No rales, rhonchi or wheezing Abdomen: Bowel sounds x 4, soft. No rebound, guarding or tenderness. No organomegaly. Extremities: No clubbing, cyanosis or edema. +2 pedal pulses bilaterally. Skin: Warm and dry. Results & Data ([facility]) Vital Signs (Past 12 Hours) Vital Signs Temp Pulse Resp BP Pulse Ox O2 Del Method 04/23/22 02:57 36.8 C 47 L 18 129/78 93 Room Air 04/22/22 22:32 36.7 C 49 L 17 160/80 H 90 Room Air
[2022-04-23 10:37] LABS: Lyme Ab IgG w/WB Rflx Negative (Negative); Lyme Ab IgM w/WB Rflx Negative (Negative)
[2022-04-23] MEDS: POTASSIUM CHLORIDE CRTAB 20 MEQ TABCR PO SCH ×2 (11:26→21:06)
[2022-04-23] MEDS: LOSARTAN POTASSIUM 50 MG TAB PO SCH (11:26)
[2022-04-23] MEDS: ACYCLOVIR 400 MG TAB PO SCH ×2 (11:26→21:06)
[2022-04-23] MEDS: VITAMIN B COMPLEX TAB PO SCH (11:26)
[2022-04-23] MEDS: CHOLECALCIFEROL 1,000 UNITS 25 MCG TAB PO SCH (11:27)
[2022-04-23] MEDS: ASPIRIN 81 MG ECTAB PO SCH (11:27)
[2022-04-23] MEDS: FUROSEMIDE 40 MG TAB PO SCH (11:27)
[2022-04-23] MEDS: NYSTATIN SUSP 500,000 U/5 ML UDC BUCCAL SCH ×3 (12:50→20:38)
--- NOTE | 2022-04-23 14:22 | Electrocardiogram Report ---
Test Reason : Blood Pressure : / mmHG Vent. Rate : 047 BPM Atrial Rate : 047 BPM P-R Int : 256 ms QRS Dur : 104 ms QT Int : 534 ms P-R-T Axes : 021 -32 047 degrees QTc Int : 472 ms Sinus bradycardia with 1st degree A-V block with Premature atrial complexes Left axis deviation Incomplete right bundle branch block Poor R wave progression, consider anterior FL vs. lead placement vs. LVH Abnormal ECG When compared with ECG of 22-APR-2022 02:20, Premature atrial complexes are now Present Confirmed by Bolivar Ramos ([id number] on 04/23/2022 2:22:05 PM Referred By: REFERRED SELF Confirmed By:Bolivar Ramos
[2022-04-23 15:00] LABS: BUN Creatinine Ratio 8.4 (10-20); Blood Urea Nitrogen 8 mg/dl (6-23); Calcium 8.4 mg/dl (8.5-10.1); Carbon Dioxide 23 mmol/L (21-32); Chloride 108 mmol/L (98-107); Creatinine Clr Calc Pharmacy 52.5 ml/min; Est GFR (African American) 69.8 ml/min; Est GFR (Non-African American) 60.3 ml/min; Glucose 87 mg/dl (70-99(Fasting)); Phosphorus 3.4 mg/dl (2.5-4.9)
[2022-04-23] MEDS: MAGNESIUM OXIDE 400 MG TAB PO SCH (17:26)
[2022-04-24 07:28] LABS: Hematocrit (blood only) 34.5 % (34.1-44.9); Hemoglobin 11.4 g/dl (12.0-16.0); Mean Corpuscular Hemoglobin 32.3 pg (25.0-34.0); Mean Corpuscular Volume 97.7 fL (80.0-100.0); Platelet Count 143 K/uL (130-400); RDW Coefficient of Variation 16.4 % (11.5-14.5); RDW Standard Deviation 59.5 fL (36.4-46.3); Red Blood Count 3.53 M/uL (3.93-5.22); White Blood Count 4.31 K/ul (4.8-10.8)
--- NOTE | 2022-04-24 07:56 | Electrocardiogram Report ---
Test Reason : Blood Pressure : / mmHG Vent. 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
[2022-04-24 07:57] LABS: BUN Creatinine Ratio 8.1 (10-20); Calcium 8.9 mg/dl (8.5-10.1); Creatinine Clr Calc Pharmacy 44.2 ml/min; Est GFR (African American) 57.9 ml/min; Est GFR (Non-African American) 49.9 ml/min; Phosphorus 3.1 mg/dl (2.5-4.9); Potassium 3.8 mmol/L (3.5-5.1)
--- NOTE | 2022-04-24 08:48 | Hospitalist Progress Note ---
Date of Service April 24, 2022 Assessment & Plan (1) Syncope: (2) Bradycardia: Plan: This 72-year-old female presents with syncope. 1. Syncope, possible symptomatic bradycardia. The patient seems has longstanding sinus bradycardia. Last Saturday she saw Cardiology and placed on Zio patch. Monitor in tele floor. Mobitz type II this AM, reviewed by cardiology Troponin negative Echocardiogram obtained Normal LV chamber size and wall thickness. Normal LV systolic function, EF 60 to 65%. No segmental LV wall motion abnormalities are noted. Grade 1 diastolic dysfunction. No significant valvular pathology. Cardiology consulted Patient underwent pacemaker placement earlier today (04/24/22). Tolerated procedure well. Follow-up chest x-ray tomorrow. 2. Light chain multiple myeloma, on chemotherapy. Follow up with hematology/oncology. 3. Hypokalemia replace and monitor 4. Hypertension, on losartan and Lasix. We will monitor the blood pressure. 5. History of parathyroid adenoma. Follow with hematology/oncology. DVT prophylaxis: SCDs DISPOSITION: tele floor. Code: Full code. Admission and Anticipated Discharge Date Admission Date: April 22, 2022 Subjective Patient seen in follow-up of bradycardia, syncopal episode, has history of MM (on chemo) Currently laying in bed, in no acute distress, patient's daughter present at bedside Underwent pacemaker placement earlier today. Currently feels well. Patient denies any chest pain, palpitations, shortness of breath, headache dizziness lightheadedness Denies abdominal pain nausea vomiting Reports feeling some soreness at the procedure site She is wearing a sling Review of Systems Review of Systems: All systems reviewed & are unremarkable except as noted in Subjective Physical Exam Physical Exam: GENERAL: The patient is moderately built, not in acute distress. HEENT: Pupils equal, round and reactive to light. EOMI, Oral mucosa moist. NECK: No JVD. No neck masses. CHEST: Surgical dressings in the left upper chest, no edema ecchymosis or drainage noted CARDIOVASCULAR: S1 and S2 heard. Regular rate and rhythm, No murmur, no gallop. RESPIRATORY: Normal AP diameter. No accessory muscle use. No wheezing, no crackles. ABDOMEN: Soft, bowel sounds present, nontender, no distention. NEURO:Awake alert oriented, answers appropriately, no facial symmetry, speech fluent, moves extremities EXTREMITIES: No edema, no erythema. Results & Data Results & Data ([facility]) Vital Signs (Past 12 Hours) Vital Signs Temp Pulse Pulse Resp BP BP Pulse Ox 04/24/22 07:47 47 L 04/24/22 07:30 36.8 C 48 L 18 122/79 93 04/23/22 22:45 58 L 04/24/22 03:31 36.8 C 45 L 15 135/74 92 04/23/22 22:48 36.9 C 52 L 15 143/84 H 93 O2 Del Method 04/24/22 07:47 04/24/22 07:30 Room Air 04/23/22 22:45 04/24/22 03:31 Room Air 04/23/22 22:48 Room Air Laboratory Results 04/24/22 04/24/22 04/23/22 Range/Units 07:01 07:01 09:35 WBC 4.31 L (4.8-10.8) K/ul RBC 3.53 L (3.93-5.22) M/uL Hgb 11.4 L (12.0-16.0) g/dl Hct 34.5 (34.1-44.9) % MCV 97.7 (80.0-100.0) fL MCH 32.3 (25.0-34.0) pg MCHC 33.0 (32.0-36.0) g/dL RDW Std Deviation 59.5 H (36.4-46.3) fL RDW Coeff of Esme 16.4 H (11.5-14.5) % Plt Count 143 (130-400) K/uL MPV 11.0 (9.4-12.3) fL Sodium 137 Potassium 3.8 Chloride 107 (98-107) mmol/L Carbon Dioxide 24 (21-32) mmol/L Anion Gap 6 BUN 9 (6-23) mg/dl Creatinine 1.11 (0.6-1.2) mg/dl Est Cr Clr Drug Dosing 44.2 ml/min Est GFR ( Amer) 57.9 ml/min Est GFR (Non-Af Amer) 49.9 ml/min BUN/Creatinine Ratio 8.1 L (10-20) Glucose 94 (70-99(Fasting)) mg/dl Calcium 8.9 (8.5-10.1) mg/dl Phosphorus 3.1 (2.5-4.9) mg/dl Magnesium 2.0 Lyme Disease IgG Ab Negative (Negative) Lyme Disease IgM Ab Negative (Negative) 04/23/22 Range/Units 06:45 WBC (4.8-10.8) K/ul RBC (3.93-5.22) M/uL Hgb (12.0-16.0) g/dl Hct (34.1-44.9) % MCV (80.0-100.0) fL MCH (25.0-34.0) pg MCHC (32.0-36.0) g/dL RDW Std Deviation (36.4-46.3) fL RDW Coeff of Esme (11.5-14.5) % Plt Count (130-400) K/uL MPV (9.4-12.3) fL Sodium TNP Potassium TNP Chloride 108 H (98-107) mmol/L Carbon Dioxide 23 (21-32) mmol/L Anion Gap TNP BUN 8 (6-23) mg/dl Creatinine 0.95 (0.6-1.2) mg/dl Est Cr Clr Drug Dosing 52.5 ml/min Est GFR ( Amer) 69.8 ml/min Est GFR (Non-Af Amer) 60.3 ml/min BUN/Creatinine Ratio 8.4 L (10-20) Glucose 87 (70-99(Fasting)) mg/dl Calcium 8.4 L (8.5-10.1) mg/dl Phosphorus 3.4 (2.5-4.9) mg/dl Magnesium TNP Lyme Disease IgG Ab (Negative) Lyme Disease IgM Ab (Negative) Medications Administered Current Inpatient Medications Acetaminophen (Acetaminophen 325 Mg Tab) 650 mg PO Q4H PRN PRN Reason: Pain or Fever Stop: 05/22/22 07:45 Acyclovir (Acyclovir 400 Mg Tab) 400 mg PO [facility] Stop: 05/22/22 08:59 Last Admin: 04/23/22 21:06 Dose: 400 mg Artificial Tears (Artificial Tears) 1 drops OP HS PRN PRN Reason: Dry Eye(S) Stop: 05/22/22 08:07 Aspirin (Aspirin 81 Mg Ectab) 81 mg PO DAILY [facility] Stop: 05/22/22 08:59 Last Admin: 04/23/22 11:27 Dose: 81 mg Fluconazole (Fluconazole 50 Mg Tab) 150 mg PO Sa@0700 [facility] Stop: 05/12/22 07:01 Furosemide (Furosemide 40 Mg Tab) 40 mg PO QAM [facility] Stop: 05/22/22 08:59 Last Admin: 04/23/22 11:27 Dose: 20 mg Losartan Potassium (Losartan Potassium 50 Mg Tab) 50 mg PO QAM [facility] Stop: 05/22/22 08:59 Last Admin: 04/23/22 11:26 Dose: 50 mg Magnesium Oxide (Magnesium Oxide 400 Mg Tab) 400 mg PO QDD [facility] Stop: 05/22/22 16:29 Last Admin: 04/23/22 17:26 Dose: 400 mg Nitroglycerin (Nitroglycerin Sl 0.4 Mg/Tab Tab) 0.4 mg SL UD PRN PRN Reason: Chest Pain Stop: 05/22/22 07:45 Nystatin (Nystatin Susp 500,000 U/5 Ml Udc) 10 ml BUCCAL QID [facility] Stop: 05/02/22 08:59 Last Admin: 04/23/22 20:38 Dose: Not Given Potassium Chloride (Potassium Chloride Crtab 20 Meq Tabcr) 20 meq PO BID [facility] Stop: 05/22/22 08:59 Last Admin: 04/23/22 21:06 Dose: 20 meq Vitamin B Complex (Vitamin B Complex Tab) 1 tab PO QAM [facility] Stop: 05/22/22 08:59 Last Admin: 04/23/22 11:26 Dose: 1 tab Vitamin D (Cholecalciferol 1,000 Units 25 Mcg Tab) 2,000 units PO DAILY [facility] Stop: 05/22/22 08:59 Last Admin: 04/23/22 11:27 Dose: 2,000 units (1) Syncope Syncope type: unspecified Qualified Code(s): R55 - Syncope and collapse
--- NOTE | 2022-04-24 10:23 | Cardiology Progress Note ---
Date of Service April 24, 2022 Assessment & Plan (1) Syncope: (2) SSS (sick sinus syndrome): (3) Fibromyalgia: (4) Hypertension: (5) PAF (paroxysmal atrial fibrillation): (6) Sjogrens syndrome: (7) GERD (gastroesophageal reflux disease): (8) MGUS (monoclonal gammopathy of unknown significance): Plan symptommatic Mobitz II AV block for dual chamber PPM placement today no need to continue zio patch[facility] Admission and Anticipated Discharge Date Admission Date: April 22, 2022 Subjective Pt seen and examined. Chart reviewed. Telemetry reviewed. Review of Systems Review of Systems: All systems reviewed & are unremarkable except as noted in HPI & below Physical Exam Physical Exam: General: Awake, alert and oriented x 3. No acute distress. HEENT: Normocephalic, atraumatic. Pupils equal, round and reactive to light and accommodation. Extraocular muscles are intact. Anicteric sclera. Moist mucous membranes. Neck: No JVD. No bruit. Cardiovascular: Regular. Positive S-4. Normal S-1 and S-2. No S-3. No murmurs or rubs. Pulmonary: Clear to auscultation B/L. No rales, rhonchi or wheezing Abdomen: Bowel sounds x 4, soft. No rebound, guarding or tenderness. No organomegaly. Extremities: No clubbing, cyanosis or edema. +2 pedal pulses bilaterally. Skin: Warm and dry. Results & Data ([facility]) Vital Signs (Past 12 Hours) Vital Signs Temp Pulse Pulse Resp BP BP Pulse Ox 04/24/22 07:47 47 L 04/24/22 07:30 36.8 C 48 L 18 122/79 93 04/23/22 22:45 58 L 04/24/22 03:31 36.8 C 45 L 15 135/74 92 04/23/22 22:48 36.9 C 52 L 15 143/84 H 93 O2 Del Method 04/24/22 07:47 04/24/22 07:30 Room Air 04/23/22 22:45 04/24/22 03:31 Room Air 04/23/22 22:48 Room Air
--- NOTE | 2022-04-24 11:13 | History & Physical Bridge Note ---
Date of Service April 24, 2022 History & Physical Bridge Note I have examined the patient, reviewed the History & Physical and in the interval since the performance of the History & Physical I have noted the following changes of clinical significance: pt with high degree AV block recommend dual chamber pacemaker prior to discharge; discussed the procedure and potential risks with the patient and consents signed.
--- NOTE | 2022-04-24 11:13 | Pre Anesthesia Assessment ---
Date of Service April 24, 2022 Pre Sedation Assessment Vital Signs Temp Pulse Pulse Pulse Resp BP BP 04/24/22 11:07 16 153/75 H 04/24/22 07:47 47 L 04/24/22 07:30 36.8 C 48 L 18 122/79 04/23/22 22:45 58 L 04/24/22 03:31 36.8 C 45 L 15 135/74 04/23/22 22:48 36.9 C 52 L 15 143/84 H 04/23/22 19:22 37.0 C 48 L 46 L 17 134/68 04/23/22 16:36 36.8 C 49 L 19 124/77 04/23/22 15:57 47 L 04/23/22 12:32 36.6 C 47 L 18 119/72 Pulse Ox O2 Del Method 04/24/22 11:07 96 Room Air 04/24/22 07:47 04/24/22 07:30 93 Room Air 04/23/22 22:45 04/24/22 03:31 92 Room Air 04/23/22 22:48 93 Room Air 04/23/22 19:22 95 Room Air 04/23/22 16:36 94 Room Air 04/23/22 15:57 04/23/22 12:32 93 Room Air Cardiovascular + bradycardic Respiratory normal respiratory effort, lungs clear to auscultation Pre-Sedation Airway Assessment Smoking Status: Never smoker Hx Sleep Apnea: No Short, Thick Neck: No Thyromental Distance: > or= 3.5 Finger Breadths Oral Cavity: + WNL Mallampati Class: IV ASA: ASA4 NPO Status Date of Last Intake of Fluids: 04/23/22 Date of Last Intake of Solid Food: 04/23/22 Procedure Planning Contraindications for Sedation: none Current Medications Reviewed: Yes Notes The planned sedation has been discussed with the patient. Informed Consent was obtained. I have identified the patient, determined the appropriateness of sedation and have assessed the patient immediately prior to the procedure. All medicine(s) and interventions are by my order.
[2022-04-24] MEDS ORDERED: fentaNYL citrate 100 MCG/2 ML VIAL ONE (11:18)
[2022-04-24] MEDS ORDERED: MIDAZOLAM HCL 5 MG/ML 1 ML VIAL ONE (11:18)
[2022-04-24] MEDS ORDERED: WATER, STERILE FOR INJ 10 ML VIAL ONE (11:21)
[2022-04-24] MEDS ORDERED: VANCOMYCIN HCL 1000MG/20ML VIAL ONE (11:21)
[2022-04-24] MEDS ORDERED: ceFAZolin 330 MG/ML 1 GM VIAL ONE (11:23)
[2022-04-24] MEDS: NYSTATIN SUSP 500,000 U/5 ML UDC BUCCAL SCH ×3 (14:37→20:38)
[2022-04-24] MEDS: VITAMIN B COMPLEX TAB PO SCH (14:41)
[2022-04-24] MEDS: ACYCLOVIR 400 MG TAB PO SCH ×2 (14:41→21:01)
[2022-04-24] MEDS: ASPIRIN 81 MG ECTAB PO SCH (14:41)
[2022-04-24] MEDS: CHOLECALCIFEROL 1,000 UNITS 25 MCG TAB PO SCH (14:41)
[2022-04-24] MEDS: LOSARTAN POTASSIUM 50 MG TAB PO SCH (14:41)
[2022-04-24] MEDS: POTASSIUM CHLORIDE CRTAB 20 MEQ TABCR PO SCH ×2 (14:45→21:01)
[2022-04-24] MEDS: FUROSEMIDE 40 MG TAB PO SCH (14:45)
--- NOTE | 2022-04-24 15:57 | Electrocardiogram Report ---
Test Reason : Blood Pressure : / mmHG Vent. Rate : 060 BPM Atrial Rate : 060 BPM P-R Int : 144 ms QRS Dur : 152 ms QT Int : 524 ms P-R-T Axes : 060 -61 100 degrees QTc Int : 524 ms AV dual-paced rhythm Abnormal ECG When compared with ECG of 24-APR-2022 05:03, Electronic ventricular pacemaker has replaced Sinus rhythm Confirmed by Bolivar Ramos ([id number] on 04/24/2022 3:56:48 PM Referred By: REFERRED SELF Confirmed By:Bolivar Ramos
[2022-04-24] MEDS: MAGNESIUM OXIDE 400 MG TAB PO SCH (17:37)
[2022-04-25 06:34] LABS: Hematocrit (blood only) 33.1 % (34.1-44.9); Hemoglobin 11.3 g/dl (12.0-16.0); Mean Corpuscular Hemoglobin 32.8 pg (25.0-34.0); Mean Corpuscular Hgb Conc 34.1 g/dL (32.0-36.0); Mean Corpuscular Volume 95.9 fL (80.0-100.0); Mean Platelet Volume 10.7 fL (9.4-12.3); Platelet Count 131 K/uL (130-400); RDW Coefficient of Variation 16.1 % (11.5-14.5); RDW Standard Deviation 57.1 fL (36.4-46.3); Red Blood Count 3.45 M/uL (3.93-5.22); White Blood Count 5.54 K/ul (4.8-10.8)
[2022-04-25 06:55] LABS: BUN Creatinine Ratio 10.9 (10-20); Calcium 8.7 mg/dl (8.5-10.1); Creatinine Clr Calc Pharmacy 48.7 ml/min; Est GFR (African American) 64.9 ml/min; Potassium 4.3 mmol/L (3.5-5.1)
[2022-04-25] MEDS: FUROSEMIDE 40 MG TAB PO SCH (08:01)
[2022-04-25] MEDS: CHOLECALCIFEROL 1,000 UNITS 25 MCG TAB PO SCH (08:01)
[2022-04-25] MEDS: ACYCLOVIR 400 MG TAB PO SCH (08:01)
[2022-04-25] MEDS: LOSARTAN POTASSIUM 50 MG TAB PO SCH (08:01)
[2022-04-25] MEDS: ASPIRIN 81 MG ECTAB PO SCH (08:01)
[2022-04-25] MEDS: VITAMIN B COMPLEX TAB PO SCH (08:01)
[2022-04-25] MEDS: NYSTATIN SUSP 500,000 U/5 ML UDC BUCCAL SCH ×2 (08:02→11:31)
[2022-04-25] MEDS: POTASSIUM CHLORIDE CRTAB 20 MEQ TABCR PO SCH (08:06)
--- NOTE | 2022-04-25 09:19 | Hospitalist Progress Note ---
Date of Service April 25, 2022 Assessment & Plan (1) Syncope: (2) Bradycardia: Plan: This 72-year-old female presents with syncope. 1. Syncope, possible symptomatic bradycardia. The patient seems has longstanding sinus bradycardia. Last Saturday she saw Cardiology and placed on Zio patch. Monitor in tele floor. Mobitz type II this AM, reviewed by cardiology Troponin negative Echocardiogram obtained Normal LV chamber size and wall thickness. Normal LV systolic function, EF 60 to 65%. No segmental LV wall motion abnormalities are noted. Grade 1 diastolic dysfunction. No significant valvular pathology. Cardiology consulted Patient underwent pacemaker placement yesterday (04/24/22). Tolerated procedure well. Reviewed follow up chest x-ray this AM 2. Light chain multiple myeloma, on chemotherapy. Follow up with hematology/oncology. 3. Hypokalemia replace and monitor 4. Hypertension, on losartan and Lasix. We will monitor the blood pressure. 5. History of parathyroid adenoma. Follow with hematology/oncology. DVT prophylaxis: SCDs DISPOSITION: tele floor. Code: Full code. Admission and Anticipated Discharge Date Admission Date: April 22, 2022 Subjective Patient seen in follow-up of bradycardia, syncopal episode, has history of MM (on chemo) Currently sitting up in bed, in no acute distress, patient's daughter present at bedside Underwent pacemaker placement yesterday. Currently feels well. Patient denies any chest pain, palpitations, shortness of breath, headache dizziness lightheadedness Denies abdominal pain nausea vomiting Reports feeling some soreness at the procedure site Review of Systems Review of Systems: All systems reviewed & are unremarkable except as noted in Subjective Physical Exam Physical Exam: GENERAL: The patient is moderately built, not in acute distress. HEENT: Pupils equal, round and reactive to light. EOMI, Oral mucosa moist. NECK: No JVD. No neck masses. CHEST: Surgical dressings in the left upper chest, no edema ecchymosis or drainage noted CARDIOVASCULAR: S1 and S2 heard. Regular rate and rhythm, No murmur, no gallop. RESPIRATORY: Normal AP diameter. No accessory muscle use. No wheezing, no crackles. ABDOMEN: Soft, bowel sounds present, nontender, no distention. NEURO:Awake alert oriented, answers appropriately, no facial symmetry, speech fluent, moves extremities EXTREMITIES: No edema, no erythema. Results & Data Results & Data ([facility]) Vital Signs (Past 12 Hours) Vital Signs Temp Pulse Pulse Resp BP Pulse Ox O2 Del Method 04/25/22 07:12 36.8 C 60 19 115/77 93 Room Air 04/25/22 02:58 36.7 C 60 16 113/73 91 Room Air 04/24/22 23:51 60 04/24/22 23:33 36.8 C 60 16 119/76 92 Room Air Laboratory Results 04/25/22 04/25/22 Range/Units 05:45 05:45 WBC 5.54 (4.8-10.8) K/ul RBC 3.45 L (3.93-5.22) M/uL Hgb 11.3 L (12.0-16.0) g/dl Hct 33.1 L (34.1-44.9) % MCV 95.9 (80.0-100.0) fL MCH 32.8 (25.0-34.0) pg MCHC 34.1 (32.0-36.0) g/dL RDW Std Deviation 57.1 H (36.4-46.3) fL RDW Coeff of Esme 16.1 H (11.5-14.5) % Plt Count 131 (130-400) K/uL MPV 10.7 (9.4-12.3) fL Sodium 138 (136-145) mmol/L Potassium 4.3 (3.5-5.1) mmol/L Chloride 109 H (98-107) mmol/L Carbon Dioxide 24 (21-32) mmol/L Anion Gap 5 (3-11) BUN 11 (6-23) mg/dl Creatinine 1.01 (0.6-1.2) mg/dl Est Cr Clr Drug Dosing 48.7 ml/min Est GFR ( Amer) 64.9 ml/min Est GFR (Non-Af Amer) 56.0 ml/min BUN/Creatinine Ratio 10.9 (10-20) Glucose 97 (70-99(Fasting)) mg/dl Calcium 8.7 (8.5-10.1) mg/dl Medications Administered Current Inpatient Medications Acetaminophen (Acetaminophen 325 Mg Tab) 650 mg PO Q4H PRN PRN Reason: Pain or Fever Stop: 05/22/22 07:45 Acyclovir (Acyclovir 400 Mg Tab) 400 mg PO [facility] Stop: 05/22/22 08:59 Last Admin: 04/25/22 08:01 Dose: 400 mg Artificial Tears (Artificial Tears) 1 drops OP HS PRN PRN Reason: Dry Eye(S) Stop: 05/22/22 08:07 Aspirin (Aspirin 81 Mg Ectab) 81 mg PO DAILY [facility] Stop: 05/22/22 08:59 Last Admin: 04/25/22 08:01 Dose: 81 mg Fluconazole (Fluconazole 50 Mg Tab) 150 mg PO Sa@0700 [facility] Stop: 05/12/22 07:01 Furosemide (Furosemide 40 Mg Tab) 40 mg PO QAM [facility] Stop: 05/22/22 08:59 Last Admin: 04/25/22 08:01 Dose: 40 mg Losartan Potassium (Losartan Potassium 50 Mg Tab) 50 mg PO QAM [facility] Stop: 05/22/22 08:59 Last Admin: 04/25/22 08:01 Dose: 50 mg Magnesium Oxide (Magnesium Oxide 400 Mg Tab) 400 mg PO QDD [facility] Stop: 05/22/22 16:29 Last Admin: 04/24/22 17:37 Dose: 400 mg Nitroglycerin (Nitroglycerin Sl 0.4 Mg/Tab Tab) 0.4 mg SL UD PRN PRN Reason: Chest Pain Stop: 05/22/22 07:45 Nystatin (Nystatin Susp 500,000 U/5 Ml Udc) 10 ml BUCCAL QID [facility] Stop: 05/02/22 08:59 Last Admin: 04/25/22 08:02 Dose: Not Given Potassium Chloride (Potassium Chloride Crtab 20 Meq Tabcr) 20 meq PO BID [facility] Stop: 05/22/22 08:59 Last Admin: 04/25/22 08:06 Dose: 20 meq Vitamin B Complex (Vitamin B Complex Tab) 1 tab PO QAM [facility] Stop: 05/22/22 08:59 Last Admin: 04/25/22 08:01 Dose: 1 tab Vitamin D (Cholecalciferol 1,000 Units 25 Mcg Tab) 2,000 units PO DAILY [facility] Stop: 05/22/22 08:59 Last Admin: 04/25/22 08:01 Dose: 2,000 units (1) Syncope Syncope type: unspecified Qualified Code(s): R55 - Syncope and collapse
--- NOTE | 2022-04-25 10:31 | Cardiology Progress Note ---
Date of Service April 25, 2022 Assessment & Plan (1) Syncope: (2) SSS (sick sinus syndrome): (3) Fibromyalgia: (4) Hypertension: (5) PAF (paroxysmal atrial fibrillation): (6) Sjogrens syndrome: (7) GERD (gastroesophageal reflux disease): (8) MGUS (monoclonal gammopathy of unknown significance): Plan symptommatic Mobitz II AV block s/p pacer placement healing well feels well ok to d/c to home from cardiac standpoint my office will call to arrange f/u with device clinic and wound check no med changes Admission and Anticipated Discharge Date Admission Date: April 22, 2022 Subjective Pt seen and examined. Chart reviewed. CXR reviewed. Telemetry reviewed. States that she feels much better today. Much less lethargic and no lightheadedness. Review of Systems Review of Systems: All systems reviewed & are unremarkable except as noted in HPI & below Physical Exam Physical Exam: General: Awake, alert and oriented x 3. No acute distress. HEENT: Normocephalic, atraumatic. Pupils equal, round and reactive to light and accommodation. Extraocular muscles are intact. Anicteric sclera. Moist mucous membranes. Neck: No JVD. No bruit. Cardiovascular: Regular. Positive S-4. Normal S-1 and S-2. No S-3. No murmurs or rubs. Pulmonary: Clear to auscultation B/L. No rales, rhonchi or wheezing Abdomen: Bowel sounds x 4, soft. No rebound, guarding or tenderness. No or ganomegaly. Extremities: No clubbing, cyanosis or edema. +2 pedal pulses bilaterally. Skin: Warm and dry. Results & Data ([facility]) Vital Signs (Past 12 Hours) Vital Signs Temp Pulse Pulse Resp BP Pulse Ox O2 Del Method 04/25/22 09:23 60 04/25/22 07:12 36.8 C 60 19 115/77 93 Room Air 04/25/22 02:58 36.7 C 60 16 113/73 91 Room Air 04/24/22 23:51 60 04/24/22 23:33 36.8 C 60 16 119/76 92 Room Air
--- NOTE | 2022-04-25 12:16 | Discharge Summary ---
Date of Service April 25, 2022 Admission HPI Per Admitting Provider History of paroxysmal atrial fibrillation in setting of electrolyte disturbance, and a CHADS2-VASc score of 2 at the time and not on anticoagulation. No recurrence. As per the Cardiology notes there is history of atrial and ventricular ectopy, resting sinus bradycardia, hypertension, aortic calcification, light chain myeloma currently under chemo, history of Sjogren's disease, history of parathyroid adenoma, presents with syncope. Patient is having this dizziness, lightheadedness going on for some time and resting bradycardia, evaluated by Cardiology last Saturday and placed on Zio patch. Last night around 11:30 p.m., she was sitting on the stool in the bathroom and cleaning up herself, she was feeling lightheaded, but the next thing she noticed she was sitting on the floor. She does not remember how it happened. She is also having diarrhea like 4-5 times recently attributing to chemo and she could not get up to go to bathroom and she soiled herself and she is cleaning and was feeling lightheaded and that is the reason she came to the ER. In the ER she was bradycardic with heart rate in the 40s. Currently, resting comfortably, hemodynamically stable. Denies any headache. No blurred visions. She has no earache, no runny nose, no sore throat, no cough, no difficulty swallowing. No chest pain, no shortness of breath, no abdominal pain. Normal bowel and bladder movements.On Acyclovir for chronic suppressive therapy. ON Diflucan for fungal infection under breast and nystatin swish and swallow for thrush. Admission Exam Per Admitting Provider GENERAL: The patient is moderately built, not in acute distress. VITAL SIGNS: Temperature 36.8, pulse 49, respiratory rate 17, blood pressure 142/65, oxygen 92% on room air. HEENT: Pupils equal, round and reactive to light. Oral mucosa moist. NECK: No JVD. No neck masses. CARDIOVASCULAR: S1 and S2 heard. Regular rate and rhythm. No murmur, no gallop. RESPIRATORY SYSTEM: Normal AP diameter. No accessory muscle use. No wheezing, no crackles. ABDOMEN: Soft, bowel sounds present, nontender, no distention. CENTRAL NERVOUS SYSTEM: Cranial nerves II-XII grossly intact, nonfocal. EXTREMITIES: No edema, no erythema. Principal Diagnosis Syncope, secondary to bradycardia, status post pacemaker placement Discharge Exam GENERAL: The patient is moderately built, not in acute distress. HEENT: Pupils equal, round and reactive to light. EOMI, Oral mucosa moist. NECK: No JVD. No neck masses. CHEST: Surgical dressings in the left upper chest, no edema ecchymosis or drainage noted CARDIOVASCULAR: S1 and S2 heard. Regular rate and rhythm, No murmur, no gallop. RESPIRATORY: Normal AP diameter. No accessory muscle use. No wheezing, no crackles. ABDOMEN: Soft, bowel sounds present, nontender, no distention. NEURO:Awake alert oriented, answers appropriately, no facial symmetry, speech fluent, moves extremities EXTREMITIES: No edema, no erythema. Discharge Data Allergies Allergy/AdvReac Type Severity Reaction Status Date / Time clarithromycin Allergy Intermediate hives Verified 04/22/22 03:15 azithromycin Allergy Unknown swelling Verified 04/22/22 03:15 hydrocortisone Allergy Unknown rash Verified 04/22/22 03:15 meperidine Allergy Unknown rash Verified 04/22/22 03:15 neomycin Allergy Unknown rash Verified 04/22/22 03:15 polymyxin B Allergy Unknown rash Verified 04/22/22 03:15 propylene glycol Allergy Unknown rash Verified 04/22/22 03:15 lisinopril AdvReac Cough Unverified 04/22/22 03:15 Consultations 04/22/22 04:46 ED Decision to Admit Stat 04/22/22 08:00 Consult Cardiology Routine Procedures Performed Operation Date: 04/24/22 10:00 Actual Procedures p Pacer with A/V Leads (Dual) - Reena Johnson DO p Venogram, Unilateral - Reena Johnson DO s Bundle of his Recording - Reena Johnson DO Ordered Studies 04/24/22 11:00 EP Lab Images for PACS ONCE Hospital Course (1) Syncope: (2) Bradycardia: This 72-year-old female presents with syncope. 1. Syncope, possible symptomatic bradycardia. The patient seems has longstanding sinus bradycardia. Last Saturday she saw Cardiology and placed on Zio patch. Monitor in tele floor. Mobitz type II this AM, reviewed by cardiology Troponin negative Echocardiogram obtained Normal LV chamber size and wall thickness. Normal LV systolic function, EF 60 to 65%. No segmental LV wall motion abnormalities are noted. Grade 1 diastolic dysfunction. No significant valvular pathology. Cardiology consulted Patient underwent pacemaker placement yesterday (04/24/22). Tolerated procedure well. Reviewed follow up chest x-ray this AM plan to Dc home and follow up w/ device clinic and pcp 2. Light chain multiple myeloma, on chemotherapy. Follow up with hematology/oncology. 3. Hypokalemia replace and monitor 4. Hypertension, on losartan and Lasix. We will monitor the blood pressure. 5. History of parathyroid adenoma. Follow with hematology/oncology. Total Time Total Time Spent Total Time Spent (In Minutes): 40 Discharge Plan Discharge Items Patient Disposition: Home - Self-Care Reason For Visit: SYNCOPE Discharge Diagnosis: Syncope, secondary to bradycardia, status post pacemaker placement Activity: As commented below Activity Comment: do not raise the left elbow over the left shoulder for 1 month Lifting: No more than 10 pounds Lifting Comment: do not lift more than 10 pounds with the left arm for 2 weeks Bathing: Keep incision dry Bathing Comment: keep dressing dry & on until wound check next week at [facility] Cardiolog Non-emergency contact: Primary Care Provider and Applied Biology Professor Call non-emergency contact if: you have any medication questions Follow-up/Referrals: [facility] Pac[facility] [Other] (Date & Time 05/01/2022 2:30 PM Provider Pacer Clinic [facility] Department Cardiology, [facility] ) Betsy Bailon PA-C [Primary Care Provider] - (Date & Time 05/01/2022 11:00 AM Provider John Lofton MD Department [facility] ) Diet: Heart Healthy Addtl Attending Provider Instructions: Follow-up with your primary care doctor, and cardiology device clinic (pacemaker check). Device and wound check next week at [facility] Cardiology on 05/01 at 2:30pm There were no medication changes made. Pending Studies at Discharge: No Stand-Alone Forms: My [email or web address], Smoking Cessation Medications and DC Order Prescriptions: Continued nystatin 100,000 unit/mL Suspension 10 ml BUCCAL QID Rx Instructions: swish and swallow 10ml four times daily dexamethasone 4 mg tablet 4 mg PO UD Rx Instructions: take 20mg dauly on days 1,2,8, 9, 15, and 16 of chemo cycle (every 21 days) 04/22/22 : currently on week off. Will begin again on april. magnesium oxide 400 mg magnesium Tablet 400 mg PO DAILY Rx Instructions: take with evening meal cholecalciferol (vitamin D3) 50 mcg (2,000 unit) Tablet 50 mcg PO DAILY Artificial Tears (PF) 0.1-0.3 % Dropperette 1 drp OPB HS PRN (Reason: Dry Eye(S)) tafluprost (PF) 0.0015 % Dropperette 1 drp OPB HS aspirin [Aspir-Low] 81 mg Tablet,Delayed Release (Dr/Ec) 81 mg PO DAILY Rx Instructions: take at noon with food fluconazole 150 mg tablet 150 mg PO WK Rx Instructions: take one tab each week for up to four weeks. lenalidomide [Revlimid] 25 mg capsule 25 mg PO UD Rx Instructions: take one capsule daily x 14 days every 21 days. Rhopressa 0.02 % Drops 1 drp OPB HS gabapentin 300 mg capsule 300 mg PO UD Rx Instructions: take one capsule before bed x three nights, then increase to one capsule twice a day x three days, then increase to one capsule three times a day thereafter. furosemide 40 mg tablet 40 mg PO QAM losartan 50 mg tablet 50 mg PO QAM acyclovir 400 mg tablet 400 mg PO AMHS potassium chloride [Klor-Con M10] 10 mEq tablet,ER particles/crystals 20 meq PO AMPM vitamin B complex Tablet 1 tab PO QAM Discharge Orders: Discharge Order (Routine); Ordered 04/25/22 Ordered By: Danis Olsen Admission Data Admit Date/Time: 04/22/22 05:50 Attending Provider: Danis Olsen Admit Provider: Hamlet Wall Primary Care Provider: Betsy Bailon Other Providers: Hamlet Wall ; Stone Christie ; Jaycob Gustafson ; Chava Nelson ; Peter Sorensen ; Ten Stroud ; Zac Pandey ; Laury Dunne ; Reena Johnson ; Marci Castillo ; Trey Manning
--- NOTE | 2022-04-25 14:49 | XRay Report ---
XR chest 1V portable CLINICAL HISTORY: s/p ppm TECHNIQUE: Single frontal radiograph of the chest was obtained. Comparison: Comparison is made to chest radiograph 06/06/2015 FINDINGS: Interval placement of dual-lead pacemaker. The cardiomediastinal silhouette is normal. The lungs are clear. No evidence of pleural effusion or pneumothorax. IMPRESSION: Interval placement of dual-lead pacemaker without evidence of pneumothorax. ACT 112: Negative or not required by law. Electronically signed by: Jared Garza M.D. 04/25/2022 2:48 PM
[2022-04-28] MEDS ORDERED: FLUCONAZOLE 50 MG TAB PO SCH (07:00)
--- NOTE | 2022-05-05 22:18 | Operative Report (OR) ---
DATE OF PROCEDURE: 04/24/2022. PREOPERATIVE DIAGNOSES: Syncope with intermittent complete heart block and sick sinus syndrome. POSTOPERATIVE DIAGNOSES: Syncope with intermittent complete heart block and sick sinus syndrome. PROCEDURE: Dual-chamber rate responsive permanent pacemaker under fluoroscopic guidance along with p eripheral venogram and intracardiac electrogram His bundle recording. SURGEON: Reena Johnson DO. SUPPLY MANAGER: None. ANESTHESIA: Monitored anesthetic care administered under my supervision by Natalie Tariq. Start time 11:41, end time 12:44. Total of 3 mg of Versed and 75 mcg of fentanyl. INTRAVENOUS FLUIDS: 65 mL. ANTIBIOTICS: 2 g of Ancef. CONTRAST: 15 mL. BLOOD LOSS: 30 mL. URINE OUTPUT: None. SPECIMENS: None. FINDINGS: See below. DRAINS: None. INDICATIONS: This is a 72-year-old female with a past medical history for paroxysmal atrial fibrilla tion in the setting of electrolyte disturbances, she is not on any anticoagulation, CHADS2-VASc score of 2, Sjogren syndrome, gastroesophageal reflux disease, hypertension, sick sinus syndrome, sinus br adycardia, and she was admitted to [facility] secondary to syncope, found to have t he syncope due to complete heart block. She was recommended a pacemaker. CONSENT: Consent was obtained prior to the patient going into the electrophysiology lab. The patien t was explained risks, benefits, and alternatives to the procedure. Risks include, but not limited t o sudden cardiac , cardiac arrhythmia, cerebrovascular accident, myocardial infarction, injury t o the blood vessels, chamber of the heart and lung, bleeding and infection. The patient understood t hese risks and agreed to proceed as planned. Informed consent was obtained. DESCRIPTION OF PROCEDURE: The patient was brought into the electrophysiology lab in a fasting state, connected to continuous cardiac monitoring. A time-out was performed to ensure the patient's identi ty and procedure correctly. She was prepped and draped in the left infraclavicular space in normal s urgical standard fashion. Monitored conscious sedation was given throughout the procedure for patijuve t's comfort level. [place] precautions were maintained throughout the procedure. She received pro phylactic antibiotics prior to incision. 10 mL of 1% lidocaine-bupivacaine mixture were given in the left deltopectoral groove. An incision w as made in the left deltopectoral groove. Blunt dissection was performed down to the pectoralis fasc ia. Then, using blunt dissection over the pectoralis muscle within the pectoralis fascia, a pacemake r pocket was created. Then, a peripheral venogram was performed to identify the axillary vein. Veno us axillary access was obtained through a needlestick without any problems. A guidewire was inserted without any resistance. A 7-Nigerian sheath was inserted over the guidewire. The dilator was removed and a second guidewire was inserted through the sheath to allow for retained venous access. Sheath was removed and flushed, then reinserted over the dilator, then reinserted over one of the guidewires . The guidewire and dilator removed. Then, the right atrial lead was temporarily placed in the righ t ventricular apex under fluoroscopic guidance to have backup pacing while positioning the left bundl e lead. A second 7-Nigerian sheath was inserted over the retained guidewire, the guidewire and dilator removed. Then, the His C315 sheath was advanced through the 7-Nigerian sheath over a Glidewire into the right ventricle. The Glidewire and dilator removed. The left bundle lead was advanced through the His C31 5 sheath and intracardiac electrogram His bundle recording was performed, see below for results. Onc e I found where the His was, I then moved the camera to ESCALONA 30 and came down about 2 cm from this in a line that would extend out to the apex to start positioning the left bundle lead. I came on pacing and I had a nice W form pace complex. I did then moved fluoroscopy screen to JOSE F 30 and started giv ing a series of clockwise turns to screw the lead into the septum. It was not going in or advancing very nicely. I did reposition it, but ultimately I found a nice position where the lead went in nice ly and I formed a nice R prime His complex and I gave contrast through the sheath to see how I was we ll into the septum. I then flipped the His C315 sheath under fluoroscopic guidance and then left the 7-Nigerian sheath in while I positioned the right atrial lead. The right atrial lead that was temporarily placed in the right ventricular apex screw was retracted a nd the lead was placed in the right atrial appendage under fluoroscopic guidance. There was adequate pacing and sensing thresholds and no diaphragmatic stimulation with pacing. The sheath was then pee led away and the lead was fixated to pectoralis muscle using 0 silk suture. Then, the 7-Nigerian sheat h around the left bundle lead was peeled away and the lead was fixated to pectoralis muscle using 0 s ilk suture. The pacemaker pocket was flushed with copious amounts of vancomycin and saline wash and inspected for hemostasis. Pulse generator was then attached to the leads making sure the pins were i n appropriate position, passed set screws, and set screws were all tightened. Then, the pulse genera tor was placed in the antibiotic pouch followed then by being placed in the pocket, making sure the l meryl were lying flat beneath the device. The incision was closed in a 3-layer fashion with 2-0 Vicry l interrupted suture, followed by 3-0 Vicryl interrupted suture, followed by 4-0 Monocryl running sti tch and Dermabond was applied followed by Telfa and Tegaderm dressing. EQUIPMENT: 1. The pulse generator is a Medtronic Ela XT DR LISSY Lobo [id number], serial number [id number]. 2. TYRX pouch, reference [id number], lot number [id number]. 3. Right atrial lead, Medtronic 5076-52 cm, serial number [id number]. 4. Left bundle lead, Medtronic 3830-69 cm, serial number [id number]. INTRAPROCEDURAL FINDINGS: 1. Intracardiac electrogram His bundle recordings, AH 84 milliseconds, HV 53 milliseconds. 2. Right atrial lead, P-wave 3.3 millivolts, impedance 592 ohms, threshold 0.9 volts. 3. Left bundle lead, R waves of 5.1 millivolts, impedance 1030 ohms, threshold 1.2 volts at 0.5 msec and impedance 1030 ohms. FINAL MEASUREMENTS THROUGH THE DEVICE. 1. Right atrial lead, P waves 3.5 millivolts, impedance 437 ohms, threshold 1 volt at 0.4 millisecon ds. 2. Left bundle lead, R waves 11.4 millivolts, impedance 874 ohms, threshold 0.5 volts at 0.4 millise conds. FINAL PARAMETERS: DDDR 60/130. Right atrial amplitude 3.5 volts, pulse width 0.4 milliseconds, sens itivity 0.3 millivolts. Left bundle lead amplitude 3.5 volts, pulse width 0.4 milliseconds, sensitiv ity 0.9 millivolts. IMPRESSION: Successful dual chamber responsive permanent pacemaker under fluoroscopic guidance along with peripheral venogram and intracardiac electrogram His bundle recording secondary to intermittent complete heart block, sick sinus syndrome, and syncope. PLAN: Transfer back to telemetry. She is not to lift the left elbow or left shoulder for 1 month. She cannot lift more than 10 pounds with left arm for 2 weeks. She is to keep the dressing on and dr betancourt until her wound check next week. Job ID: [id number]
== END 2022-04-25 13:26 | disposition home or self-care (01) | DRG 243 ==
LOC: ED 02:13 → EDINP 05:50 → 4W 16:19